=== PATIENT | female | born 1970 | race Caucasian/White ===

== ENCOUNTER → 2017-10-07 04:11 | Outpatient (CLI) | payer BC, SELFPAY ==
[2017-10-07 08:40] LABS: HCT 37.8 % (36.0-46.0); HGB 13.2 g/dL (12.0-15.5); Mean Corp. HGB Concentration 34.9 g/dL (32.0-36.0); Mean Corpuscular Hemoglobin 32.6 pg (27.0-33.0); Mean Corpuscular Volume 93.3 fL (80-95); Mean Platelet Volume 10.5 fL (8.0-11.0); Platelet Count 192 x1000/uL (130-400); RBC 4.05 m/cumm (4.00-5.20); RBC Distribution Width 11.5 % (11.7-14.6); White Blood Cell Count 3.81 k/cumm (4.4-10.8)
[2017-10-07 09:27] LABS: Iron 147 ug/dL (50-175); Total Iron Binding Capacity 245 ug/dL (250-450); Transferrin Sat 60 % (15-50)
[2017-10-07 09:46] LABS: ESR 10 MM/HR (0-20)
[2017-10-07 09:47] LABS: Vitamin D 25 Total 67.8 ng/ml (30-100)
[2017-10-07 09:56] LABS: ALT 31 U/L (12-78); AST 24 U/L (15-37); Albumin 3.8 g/dL (3.4-5.0); Alkaline Phosphatase 58 U/L (46-116); Anion Gap 8.2 mmol/L (3-11); BUN 12 mg/dL (7-18); Bilirubin, Total 0.7 mg/dL (0.2-1.0); CO2 26.8 mmol/L (21.0-32.0); CREATININE 0.81 mg/dL (0.55-1.02); Calcium 8.5 mg/dL (8.5-10.1); Chloride 104 mmol/L (98-107); Cholesterol 211 mg/dL (50-200); Ferritin 49 ng/mL (8-388); GGT 17 U/L (5-55); Glucose 84 mg/dL (70-100); HDL Cholesterol 81 mg/dL (40-60); LDL CHOLESTEROL 122 mg/dL (<100); Potassium 4.2 mmol/L (3.5-5.1); Sodium 139 mmol/L (136-145); TSH 0.28 uIU/mL (0.358-3.74); Total Protein 7.1 g/dL (6.4-8.2); Triglyceride 37 mg/dL (30-150); Vitamin B12 > 1000 pg/mL (193-986)
[2017-10-07 16:36] LABS: CRP, High Sensitivity 0.85 mg/L
[2017-10-07 16:51] LABS: T3,Free 3.3 pg/ml (2.8-5.3)
[2017-10-08 08:40] LABS: DHEA Sulfate 187 ug/dl (56-283)
[2017-10-08 10:00] LABS: Thyroglobulin Antibody 217 U/mL (<61); Thyroperoxidase Antibody 153 U/mL (<61)
[2017-10-08 10:48] LABS: Homocysteine 9.1 umol/L (4.5-12.4)
[2017-10-08 13:57] LABS: ANA Interpretation Positive (NEGAT); ANA Titer Pattern SEE COMMENTS
[2017-10-09 13:35] LABS: Mold Panel (MAYO) <0.35 kU/L
[2017-10-14 09:54] LABS: Insulin <3.0 uU/mL (<29)
== END ==
PROVIDERS: PCP Internal Medicine; Visit Provider Nurse Practitioner Family
DX: R53.83 Other fatigue (principal); E06.3 Autoimmune thyroiditis; E56.8 Deficiency of other vitamins; E55.9 Vitamin D deficiency, unspecified; E27.8 Other specified disorders of adrenal gland; E72.10 Disorders of sulfur-bearing amino-acid metabolism, unspecified; B37.82 Candidal enteritis; R76.9 Abnormal immunological finding in serum, unspecified; B89 Unspecified parasitic disease
CPT/HCPCS: 36415; 80053; 80061; 82306; 82627; 83090; 83721; 85027; 85652; 86141; 82607; 82728; 82977; 83525; 83540; 83550; 84439; 84443; 84481; 84999; 86003; 86038; 86376; 86628; 86800

== ENCOUNTER → 2017-10-25 15:14 | Outpatient (CLI) | payer BC, SELFPAY ==
[2017-10-26 10:00] LABS: Cyclic Citrullinated Peptide <2.5 U/mL (<5.0)
[2017-10-26 11:06] LABS: Rheumatoid Factor 25 IU/mL (<12.5)
[2017-10-26 13:38] LABS: dsDNA Ab, IgG <12.3 IU/mL (<30)
[2017-10-26 15:22] LABS: Sm (Smith) Ab, IgG 1.5 Units (<20)
[2017-10-27 12:54] LABS: RNP Ab, IgG 2.3 Units (<20)
== END ==
PROVIDERS: PCP Internal Medicine; Visit Provider Nurse Practitioner Family
DX: E03.9 Hypothyroidism, unspecified (principal); E06.3 Autoimmune thyroiditis
CPT/HCPCS: 36415; 86147; 86200; 86225; 86235; 86431

== ENCOUNTER 2017-11-02 11:13 | Outpatient (CLI) | payer BC, SELFPAY ==
[2017-11-02 13:06] LABS: FREE T4 0.73 ng/dL (0.76-1.46); TSH 0.17 uIU/mL (0.358-3.74)
[2017-11-03 09:48] LABS: Thyroglobulin Antibody 216 U/mL (<61); Thyroperoxidase Antibody 146 U/mL (<61)
[2017-11-06 14:59] LABS: T3 (Triiodothyronine) Reverse 13 ng/dL (10-24)
== END 2017-11-02 11:33 ==
PROVIDERS: PCP Internal Medicine; Visit Provider Nurse Practitioner Family
DX: E03.9 Hypothyroidism, unspecified (principal); E06.3 Autoimmune thyroiditis
CPT/HCPCS: 36415; 84439; 84443; 84481; 84482; 86376; 86800

== ENCOUNTER 2018-01-27 02:24 | Outpatient (CLI) | payer BC, SELFPAY ==
[2018-01-27 09:39] LABS: ALT 32 U/L (12-78); AST 21 U/L (15-37); Albumin 3.6 g/dL (3.4-5.0); Alkaline Phosphatase 55 U/L (46-116); Anion Gap 7.8 mmol/L (3-11); BUN 14 mg/dL (7-18); Bilirubin, Total 0.5 mg/dL (0.2-1.0); CO2 28.2 mmol/L (21.0-32.0); Calcium 8.6 mg/dL (8.5-10.1); Chloride 100 mmol/L (98-107); FREE T4 0.63 ng/dL (0.76-1.46); Glucose 83 mg/dL (70-100); Potassium 4.3 mmol/L (3.5-5.1); Sodium 136 mmol/L (136-145); Total Protein 7.1 g/dL (6.4-8.2)
[2018-01-27 10:19] LABS: Ferritin 51 ng/mL (8-388)
[2018-01-27 21:54] LABS: T3,Free 2.5 pg/ml (2.8-5.3)
[2018-01-28 09:18] LABS: Thyroglobulin Antibody 245 U/mL (<61)
[2018-01-28 09:19] LABS: Thyroperoxidase Antibody 188 U/mL (<61)
[2018-01-28 11:30] LABS: Homocysteine 7.3 umol/L (4.5-12.4)
[2018-01-28 12:03] LABS: Rheumatoid Factor 23 IU/mL (<12.5)
[2018-01-28 13:54] LABS: ANA Interpretation Positive (NEGAT); ANA Titer Pattern SEE COMMENTS
[2018-02-01 12:57] LABS: T3 (Triiodothyronine) Reverse 8.1 ng/dL (10-24)
== END 2018-01-27 02:44 ==
PROVIDERS: PCP Internal Medicine; Visit Provider Nurse Practitioner Family
DX: R53.83 Other fatigue (principal); E06.3 Autoimmune thyroiditis; E56.8 Deficiency of other vitamins; E55.9 Vitamin D deficiency, unspecified; E27.8 Other specified disorders of adrenal gland; E72.10 Disorders of sulfur-bearing amino-acid metabolism, unspecified; B37.82 Candidal enteritis; R76.9 Abnormal immunological finding in serum, unspecified; B89 Unspecified parasitic disease; M25.50 Pain in unspecified joint
CPT/HCPCS: 36415; 80053; 83090; 82728; 83525; 84439; 84443; 84481; 84482; 86038; 86376; 86431; 86800

== ENCOUNTER 2018-03-04 07:51 | Outpatient (CLI) | payer BC, SELFPAY ==
[2018-03-04 09:03] LABS: Iron 87 ug/dL (50-175); Total Iron Binding Capacity 226 ug/dL (250-450); Transferrin Sat 38 % (15-50)
[2018-03-04 09:17] LABS: Ferritin 41 ng/mL (8-388); TSH 0.11 uIU/mL (0.358-3.74)
[2018-03-04 09:45] LABS: FREE T4 0.88 ng/dL (0.76-1.46)
[2018-03-04 21:55] LABS: T3,Free 3.8 pg/ml (2.8-5.3)
[2018-03-07 11:09] LABS: Transferrin 170 mg/dL (201-352)
== END 2018-03-04 08:11 ==
PROVIDERS: PCP Internal Medicine; Visit Provider Nurse Practitioner Family
DX: E03.9 Hypothyroidism, unspecified (principal); E61.1 Iron deficiency
CPT/HCPCS: 36415; 82728; 83540; 83550; 84439; 84443; 84466; 84481

== ENCOUNTER 2018-04-01 00:07 | Outpatient (CLI) | payer BC, SELFPAY ==
--- NOTE | 2018-04-01 14:29 | DI.MRI_ITS ---
SYMPTOMS/DIAGNOSIS: EVALUATE FOR ROTATOR CUFF TEAR, ACUTE PAIN, M25.512 LEFT SHOULDER MRI: MRI examination of the shoulder was performed according to the usual protocol. No significant bony signal abnormality is seen. Mild hypertrophic degenerative changes noted at the AC joint with mild superior impingement on supraspinatus tendon/myotendinous junction. Narrowing of the acromial outlet is also noted. Minimal signal increase in supraspinatus tendon noted consistent with a mild tendinosis. No evidence of tear. There is mild irregularity of the superior surface of the subscapularis which may represent a minimal partial thickness tear. No full thickness tear or retraction seen. The biceps anchor and tendon appear normal. The glenoid labrum grossly unremarkable by noncontrast criteria. CONCLUSION: Findings consistent with mild supraspinatus tendinosis and mild superior margin subscapularis tendinosis or partial tear. Findings of AC joint associated supraspinatus impingement and narrowing of the acromial outlet due to decreased acromiohumeral distance also noted.
== END 2018-04-01 00:27 ==
PROVIDERS: PCP Internal Medicine; Visit Provider Orthopaedic Surgery
DX: M25.512 Pain in left shoulder (principal); M75.82 Other shoulder lesions, left shoulder; M75.42 Impingement syndrome of left shoulder
CPT/HCPCS: 73221

== ENCOUNTER 2018-09-16 02:45 | Outpatient (CLI) | payer BC, SELFPAY ==
[2018-09-16 13:27] LABS: ALT 33 U/L (12-78); AST 20 U/L (15-37); Albumin 2.5 g/dL (3.4-5.0); Alkaline Phosphatase 52 U/L (46-116); Anion Gap 6.2 mmol/L (3-11); BUN 14 mg/dL (7-18); Bilirubin, Total 0.6 mg/dL (0.2-1.0); CO2 28.8 mmol/L (21.0-32.0); CREATININE 0.69 mg/dL (0.55-1.02); Calcium 9.1 mg/dL (8.5-10.1); Chloride 101 mmol/L (98-107); FREE T4 0.62 ng/dL (0.76-1.46); Glucose 106 mg/dL (70-100); Potassium 4.5 mmol/L (3.5-5.1); Sodium 136 mmol/L (136-145); TSH 37.35 uIU/mL (0.358-3.74); Total Protein 7.5 g/dL (6.4-8.2)
[2018-09-16 22:12] LABS: T3,Free 3.4 pg/ml (2.8-5.3)
[2018-09-20 12:02] LABS: T3 (Triiodothyronine) Reverse 10 ng/dL (10-24)
== END 2018-09-16 03:05 ==
PROVIDERS: PCP Internal Medicine; Visit Provider Nurse Practitioner Family
DX: E03.9 Hypothyroidism, unspecified (principal)
CPT/HCPCS: 36415; 80053; 84439; 84443; 84481; 84482

== ENCOUNTER 2018-10-26 07:00 | Outpatient (CLI) | payer BC, SELFPAY ==
[2018-10-27 17:02] LABS: Estradiol 269 pg/ml; Progesterone 13.4 ng/ml
[2018-10-28 10:48] LABS: FSH 11.9 mIU/ml
[2018-10-30 09:50] LABS: Testosterone, Free 0.27 ng/dL (0.06-0.95); Testosterone, Total 17 ng/dL (8-60)
[2018-11-01 10:11] LABS: Estrone 141 pg/mL
== END 2018-10-26 07:20 ==
PROVIDERS: PCP Internal Medicine; Visit Provider Nurse Practitioner Family
DX: N95.1 Menopausal and female climacteric states (principal); R53.83 Other fatigue; E06.3 Autoimmune thyroiditis; E56.8 Deficiency of other vitamins; E55.9 Vitamin D deficiency, unspecified; E27.8 Other specified disorders of adrenal gland; E72.10 Disorders of sulfur-bearing amino-acid metabolism, unspecified; B37.82 Candidal enteritis; R76.9 Abnormal immunological finding in serum, unspecified; B89 Unspecified parasitic disease
CPT/HCPCS: 36415; 84402; 84403; 82670; 82679; 83001; 84144

== ENCOUNTER 2018-11-11 01:45 | Outpatient (CLI) | payer BC, SELFPAY ==
[2018-11-11 08:36] LABS: ALT 34 U/L (14-59); AST 21 U/L (15-37); Albumin 3.9 g/dL (3.4-5.0); Alkaline Phosphatase 68 U/L (46-116); Anion Gap 8.6 mmol/L (3-11); BUN 13 mg/dL (7-18); Bilirubin, Total 0.4 mg/dL (0.2-1.0); CO2 29.4 mmol/L (21.0-32.0); CREATININE 0.77 mg/dL (0.55-1.02); Calcium 8.6 mg/dL (8.5-10.1); Chloride 104 mmol/L (98-107); Ferritin 83 ng/mL (8-388); Glucose 65 mg/dL (70-100); Sodium 142 mmol/L (136-145); TSH 1.06 uIU/mL (0.36-3.74); Total Protein 7.4 g/dL (6.4-8.2)
[2018-11-11 08:58] LABS: FREE T4 1.11 ng/dL (0.76-1.46)
[2018-11-11 09:08] LABS: Iron 72 ug/dL (50-175); Total Iron Binding Capacity 227 ug/dL (250-450); Transferrin Sat 32 % (15-50)
[2018-11-11 16:47] LABS: T3,Free 3.4 pg/ml (2.8-5.3)
[2018-11-15 09:59] LABS: T3 (Triiodothyronine) Reverse 17 ng/dL (10-24)
== END 2018-11-11 02:05 ==
PROVIDERS: PCP Internal Medicine; Visit Provider Nurse Practitioner Family
DX: E03.9 Hypothyroidism, unspecified (principal); E61.1 Iron deficiency
CPT/HCPCS: 36415; 80053; 82728; 83540; 83550; 84439; 84443; 84481; 84482

== ENCOUNTER 2019-05-12 09:26 | Outpatient (CLI) | payer BC, SELFPAY ==
[2019-05-12 11:56] LABS: HCT 38.6 % (36.0-46.0); HGB 13.2 g/dL (12.0-15.5); Mean Corp. HGB Concentration 34.2 g/dL (32.0-36.0); Mean Corpuscular Hemoglobin 32.3 pg (27.0-33.0); Mean Corpuscular Volume 94.4 fL (80-95); Mean Platelet Volume 9.7 fL (8.0-11.0); Platelet Count 218 x1000/uL (130-400); RBC 4.09 m/cumm (4.00-5.20); RBC Distribution Width 12.2 % (11.7-14.6); White Blood Cell Count 5.14 k/cumm (4.4-10.8)
[2019-05-12 13:17] LABS: ALT 28 U/L (14-59); AST 21 U/L (15-37); Albumin 3.9 g/dL (3.4-5.0); Alkaline Phosphatase 63 U/L (46-116); Anion Gap 5.9 mmol/L (3-11); BUN 12 mg/dL (7-18); Bilirubin, Total 0.4 mg/dL (0.2-1.0); CO2 31.1 mmol/L (21.0-32.0); CREATININE 0.78 mg/dL (0.55-1.02); Calcium 8.4 mg/dL (8.5-10.1); Chloride 103 mmol/L (98-107); Ferritin 97 ng/mL (8-252); Glucose 141 mg/dL (74-106); Potassium 3.9 mmol/L (3.5-5.1); Sodium 140 mmol/L (136-145); TSH 0.56 uIU/mL (0.36-3.74); Total Protein 7.4 g/dL (6.4-8.2)
[2019-05-12 13:34] LABS: FREE T4 1.25 ng/dL (0.76-1.46)
[2019-05-12 21:36] LABS: T3,Free 3.5 pg/mL (2.8-5.3)
[2019-05-15 07:16] LABS: Vitamin D 25 Total 72.6 ng/ml (30-100)
[2019-05-16 13:24] LABS: T3 (Triiodothyronine) Reverse 22 ng/dL (10-24)
== END 2019-05-12 09:46 ==
PROVIDERS: PCP Internal Medicine; Visit Provider Nurse Practitioner Family
DX: R53.83 Other fatigue (principal); E06.3 Autoimmune thyroiditis; E56.8 Deficiency of other vitamins; E55.9 Vitamin D deficiency, unspecified; E27.8 Other specified disorders of adrenal gland; E72.10 Disorders of sulfur-bearing amino-acid metabolism, unspecified; B37.82 Candidal enteritis; R76.9 Abnormal immunological finding in serum, unspecified; B89 Unspecified parasitic disease
CPT/HCPCS: 36415; 80053; 82306; 85027; 82728; 84439; 84443; 84481; 84482

== ENCOUNTER 2019-09-01 01:09 | Outpatient (CLI) | payer BC, SELFPAY ==
[2019-09-01 12:51] LABS: HCT 37.3 % (36.0-46.0); HGB 13.1 g/dL (12.0-15.5); Mean Corp. HGB Concentration 35.1 g/dL (32.0-36.0); Mean Platelet Volume 9.7 fL (8.0-11.0); Platelet Count 231 x1000/uL (130-400); RBC 3.97 m/cumm (4.00-5.20); White Blood Cell Count 5.83 k/cumm (4.4-10.8)
[2019-09-01 13:00] LABS: Hemoglobin A1C 4.8 % (3.8-5.6)
[2019-09-01 13:52] LABS: ALT 23 U/L (14-59); AST 19 U/L (15-37); Albumin 3.9 g/dL (3.4-5.0); Alkaline Phosphatase 60 U/L (46-116); Anion Gap 6.8 mmol/L (3-11); BUN 14 mg/dL (7-18); Bilirubin, Total 0.4 mg/dL (0.2-1.0); CO2 29.2 mmol/L (21.0-32.0); Calcium 8.8 mg/dL (8.5-10.1); Chloride 101 mmol/L (98-107); Estimated GFR 52.79 (mL/min/1.73m2); FREE T4 0.83 ng/dL (0.76-1.46); Glucose 92 mg/dL (74-106); Potassium 4.1 mmol/L (3.5-5.1); Sodium 137 mmol/L (136-145); TSH 14.28 uIU/mL (0.36-3.74); Total Protein 7.3 g/dL (6.4-8.2)
[2019-09-01 20:42] LABS: T3,Free 3.5 pg/mL (2.8-5.3)
[2019-09-01 20:59] LABS: Estradiol 32 pg/mL (See Note); Progesterone 12.3 ng/mL (See Table)
[2019-09-04 05:55] LABS: Vitamin D 25 Total 77.3 ng/ml (30-100)
[2019-09-04 13:33] LABS: FSH 64.5 mIU/mL (See Note)
== END 2019-09-01 01:29 ==
PROVIDERS: PCP Internal Medicine; Visit Provider Nurse Practitioner Family
DX: R53.83 Other fatigue (principal); E06.3 Autoimmune thyroiditis; E56.8 Deficiency of other vitamins; E55.9 Vitamin D deficiency, unspecified; E27.8 Other specified disorders of adrenal gland; E72.10 Disorders of sulfur-bearing amino-acid metabolism, unspecified; B37.82 Candidal enteritis; R76.9 Abnormal immunological finding in serum, unspecified; B89 Unspecified parasitic disease
CPT/HCPCS: 36415; 80053; 82306; 85027; 82670; 83001; 83036; 84144; 84439; 84443; 84481

== ENCOUNTER 2019-09-14 02:46 | Outpatient (CLI) | payer BC, SELFPAY ==
[2019-09-14 14:19] LABS: ALT 23 U/L (14-59); AST 21 U/L (15-37); Albumin 3.9 g/dL (3.4-5.0); Alkaline Phosphatase 60 U/L (46-116); Anion Gap 7.3 mmol/L (3-11); BUN 13 mg/dL (7-18); Bilirubin, Total 0.3 mg/dL (0.2-1.0); CO2 28.7 mmol/L (21.0-32.0); CREATININE 0.99 mg/dL (0.55-1.02); Chloride 102 mmol/L (98-107); Estimated GFR 59.62 (mL/min/1.73m2); Glucose 104 mg/dL (74-106); Potassium 4.6 mmol/L (3.5-5.1); Sodium 138 mmol/L (136-145); T4 5.4 ug/mL (4.7-13.3); TSH 13.33 uIU/mL (0.36-3.74); Total Protein 7.1 g/dL (6.4-8.2)
[2019-09-14 14:36] LABS: FREE T4 0.89 ng/dL (0.76-1.46)
[2019-09-14 21:38] LABS: T3,Free 3.1 pg/mL (2.8-5.3)
[2019-09-14 21:53] LABS: T3, Total 169 ng/dL (97-169)
== END 2019-09-14 03:06 ==
PROVIDERS: PCP Internal Medicine; Visit Provider Nurse Practitioner Family
DX: E03.9 Hypothyroidism, unspecified (principal)
CPT/HCPCS: 36415; 80053; 84436; 84439; 84443; 84480; 84481

== ENCOUNTER 2019-12-08 02:57 | Outpatient (CLI) | payer BC, SELFPAY ==
[2019-12-08 12:20] LABS: HCT 38.7 % (36.0-46.0); HGB 13.4 g/dL (11.2-15.7); MCH 33.1 pg (27.0-33.0); MCHC 34.6 % (32.0-36.0); MCV 95.6 fL (80-95); MPV 10.1 fL (8.0-11.0); Platelet Count 226 10^3/uL (130-400); RBC 4.05 10^6/uL (3.93-5.22); RDW 11.2 % (11.7-14.6); RDW-SD 39.4 fL; WBC 4.68 10^3/uL (4.4-10.8)
[2019-12-08 13:37] LABS: ALT 25 U/L (14-59); AST 18 U/L (15-37); Albumin 3.8 g/dL (3.4-5.0); Alkaline Phosphatase 58 U/L (46-116); Anion Gap 8.3 mmol/L (3-11); BUN 12 mg/dL (7-18); Bilirubin, Total 0.4 mg/dL (0.2-1.0); CO2 28.7 mmol/L (21.0-32.0); CREATININE 0.83 mg/dL (0.55-1.02); Calcium 8.6 mg/dL (8.5-10.1); Chloride 103 mmol/L (98-107); Ferritin 80 ng/mL (8-252); Glucose 96 mg/dL (74-106); Potassium 4.2 mmol/L (3.5-5.1); Sodium 140 mmol/L (136-145); TSH 2.09 uIU/mL (0.36-3.74); Total Protein 7.1 g/dL (6.4-8.2)
[2019-12-08 14:38] LABS: FREE T4 1.08 ng/dL (0.76-1.46)
[2019-12-08 17:53] LABS: T3,Free 3.6 pg/mL (2.8-5.3)
== END 2019-12-08 03:17 ==
PROVIDERS: PCP Internal Medicine; Visit Provider Nurse Practitioner Family
DX: R53.83 Other fatigue (principal); E06.3 Autoimmune thyroiditis; E56.8 Deficiency of other vitamins; E55.9 Vitamin D deficiency, unspecified; E27.8 Other specified disorders of adrenal gland; E72.10 Disorders of sulfur-bearing amino-acid metabolism, unspecified; B37.82 Candidal enteritis; R76.9 Abnormal immunological finding in serum, unspecified; B89 Unspecified parasitic disease
CPT/HCPCS: 36415; 80053; 85027; 82728; 84439; 84443; 84481

== ENCOUNTER 2020-02-05 12:06 | Outpatient (CLI) | payer BC, SELFPAY ==
[2020-02-07 09:41] LABS: COVID-19 RT-PCR Result NEGATIVE (Negative)
== END 2020-02-05 12:26 ==
PROVIDERS: PCP Internal Medicine; Visit Provider Internal Medicine
DX: Z20.828 Contact with and (suspected) exposure to other viral communicable diseases (principal)
CPT/HCPCS: U0003

== ENCOUNTER 2020-05-03 02:37 | Outpatient (CLI) | payer BC, SELFPAY ==
[2020-05-03 11:17] LABS: HCT 38.8 % (36.0-46.0); HGB 13.3 g/dL (11.2-15.7); MCH 32.3 pg (27.0-33.0); MCHC 34.3 % (32.0-36.0); MCV 94.2 fL (80-95); MPV 10.2 fL (8.0-11.0); Platelet Count 224 10^3/uL (130-400); RBC 4.12 10^6/uL (3.93-5.22); RDW 11.7 % (11.7-14.6); RDW-SD 40.2 fL; WBC 6.58 10^3/uL (4.4-10.8)
[2020-05-03 12:37] LABS: ALT 28 U/L (14-59); AST 16 U/L (15-37); Albumin 4.1 g/dL (3.4-5.0); Alkaline Phosphatase 61 U/L (46-116); Anion Gap 7.3 mmol/L (3-11); BUN 14 mg/dL (7-18); Bilirubin, Total 0.4 mg/dL (0.2-1.0); CO2 28.7 mmol/L (21.0-32.0); CREATININE 0.8 mg/dL (0.55-1.02); Calcium 8.9 mg/dL (8.5-10.1); Chloride 103 mmol/L (98-107); FREE T4 1.11 ng/dL (0.76-1.46); Glucose 91 mg/dL (74-106); Potassium 4.1 mmol/L (3.5-5.1); Sodium 139 mmol/L (136-145); TSH 3.51 uIU/mL (0.36-3.74); Total Protein 7.6 g/dL (6.4-8.2)
[2020-05-03 22:08] LABS: T3,Free 3.3 pg/mL (2.8-5.3)
[2020-05-03 22:19] LABS: Estradiol <12 pg/mL (See Note)
[2020-05-03 22:21] LABS: Progesterone 1.1 ng/mL (See Table)
[2020-05-03 22:33] LABS: FSH 83.4 mIU/mL (See Note)
[2020-05-06 05:59] LABS: Vitamin D 25 Total 82.7 ng/ml (30-100)
== END 2020-05-03 02:38 | disposition home or self-care (01) ==
LOC: LBO 02:37
PROVIDERS: PCP Internal Medicine; Visit Provider Nurse Practitioner Family
DX: E03.9 Hypothyroidism, unspecified (principal)
CPT/HCPCS: 36415; 80053; 82306; 85027; 82670; 83001; 84144; 84439; 84443; 84481

== ENCOUNTER 2020-07-10 03:06 | Outpatient (CLI) | payer BC, SELFPAY ==
[2020-07-10 13:16] LABS: ALT 33 U/L (14-59); AST 23 U/L (15-37); Albumin 3.9 g/dL (3.4-5.0); Alkaline Phosphatase 60 U/L (46-116); Anion Gap 7.9 mmol/L (3-11); BUN 10 mg/dL (7-18); Bilirubin, Total 0.4 mg/dL (0.2-1.0); CO2 28.1 mmol/L (21.0-32.0); CREATININE 0.8 mg/dL (0.55-1.02); Calcium 8.7 mg/dL (8.5-10.1); Chloride 102 mmol/L (98-107); FREE T4 1.23 ng/dL (0.76-1.46); Glucose 86 mg/dL (74-106); Potassium 4.1 mmol/L (3.5-5.1); Sodium 138 mmol/L (136-145); TSH 0.48 uIU/mL (0.36-3.74); Total Protein 7.3 g/dL (6.4-8.2)
[2020-07-10 16:32] LABS: T3,Free 3.6 pg/mL (2.8-5.3)
[2020-07-10 17:27] LABS: Estradiol 196 pg/mL (See Note)
[2020-07-10 17:33] LABS: FSH 29.1 mIU/mL (See Note); Progesterone 8.9 ng/mL (See Table)
[2020-07-12 09:55] LABS: DHEA Sulfate 106 ug/dL (56-283)
[2020-07-13 13:48] LABS: Testosterone, Free 0.22 ng/dL (0.06-0.92); Testosterone, Total 16 ng/dL (8-60)
[2020-07-13 14:21] LABS: Estrone 61 pg/mL
== END 2020-07-10 03:07 | disposition home or self-care (01) ==
LOC: LBO 03:07
PROVIDERS: PCP Internal Medicine; Visit Provider Nurse Practitioner Family
DX: R53.83 Other fatigue (principal); E06.3 Autoimmune thyroiditis; E56.8 Deficiency of other vitamins; E55.9 Vitamin D deficiency, unspecified; E27.8 Other specified disorders of adrenal gland; E72.10 Disorders of sulfur-bearing amino-acid metabolism, unspecified; B37.82 Candidal enteritis; R76.9 Abnormal immunological finding in serum, unspecified; B89 Unspecified parasitic disease
CPT/HCPCS: 36415; 80053; 82627; 84402; 84403; 82670; 82679; 83001; 84144; 84439; 84443; 84481

== ENCOUNTER 2020-10-15 03:49 | Outpatient (CLI) | payer BC, SELFPAY ==
[2020-10-15 15:02] LABS: ESR 1 mm/hr (0-20); HCT 37.2 % (36.0-46.0); HGB 12.4 g/dL (11.2-15.7); MCH 31.9 pg (27.0-33.0); MCHC 33.3 % (32.0-36.0); MCV 95.6 fL (80-95); MPV 9.9 fL (8.0-11.0); Platelet Count 201 10^3/uL (130-400); RBC 3.89 10^6/uL (3.93-5.22); RDW 11.7 % (11.7-14.6); RDW-SD 41.1 fL; WBC 5.21 10^3/uL (4.4-10.8)
[2020-10-15 16:37] LABS: ALT 25 U/L (14-59); AST 16 U/L (15-37); Albumin 3.7 g/dL (3.4-5.0); Alkaline Phosphatase 57 U/L (46-116); Anion Gap 6.3 mmol/L (3-11); BUN 16 mg/dL (7-18); Bilirubin, Total 0.2 mg/dL (0.2-1.0); CO2 28.7 mmol/L (21.0-32.0); CREATININE 0.8 mg/dL (0.55-1.02); Calcium 8.3 mg/dL (8.5-10.1); Chloride 104 mmol/L (98-107); Glucose 96 mg/dL (74-106); Potassium 4.5 mmol/L (3.5-5.1); Sodium 139 mmol/L (136-145); Total Protein 6.8 g/dL (6.4-8.2)
[2020-10-15 21:52] LABS: Rheumatoid Factor 15.4 IU/mL (<12.0)
[2020-10-16 08:52] LABS: Cyclic Citrullinated Peptide <2.5 U/mL (<5.0)
[2020-10-16 15:09] LABS: ANA Interpretation Positive (Negative); ANA Titer Pattern 1:320 Homogeneous
[2020-10-17 01:26] LABS: IgG Immunoblot Negative (Negative); IgM Immunoblot Negative (Negative)
== END 2020-10-15 03:50 | disposition home or self-care (01) ==
LOC: LBO 03:49
PROVIDERS: PCP Internal Medicine; Visit Provider Nurse Practitioner Family
DX: M25.50 Pain in unspecified joint (principal)
CPT/HCPCS: 36415; 80053; 85027; 85652; 86200; 86038; 86431

== ENCOUNTER 2020-11-08 04:19 | Outpatient (CLI) | payer BC, SELFPAY ==
--- NOTE | 2020-11-08 | DI.DEXA_ITS ---
Exam(s) XR DEXA BONE DENSITY W/WO DAPHNE EXAM: XR DEXA BONE DENSITY W/WO DAPHNE CLINICAL HISTORY: MENOPAUSAL FEMALE, N95.1, HYPOTHYROIDISM, E03.9, VIT D DEF, E55.9 TECHNIQUE: COMPARISON: No exams were available for comparison FINDINGS: Lateral Spine Image: Unremarkable. No compression deformities identified. Left/Right Hip: Total T-Score: -1.0 Total Z-Score: -0.6 T- and Z-scores: Within normal limits. Lumbar Spine: Total T-Score: -1.3 Total Z-Score: -0.5 T- and Z-scores: Findings consistent with osteopenia. IMPRESSION: Osteopenia in the lumbar spine. No evidence of osteoporosis.
== END 2020-11-08 04:39 ==
PROVIDERS: PCP Internal Medicine; Visit Provider Nurse Practitioner Family
DX: E03.9 Hypothyroidism, unspecified (principal); E55.9 Vitamin D deficiency, unspecified; R53.83 Other fatigue; E06.3 Autoimmune thyroiditis; E56.8 Deficiency of other vitamins; E27.8 Other specified disorders of adrenal gland; E72.10 Disorders of sulfur-bearing amino-acid metabolism, unspecified; B37.82 Candidal enteritis; R76.9 Abnormal immunological finding in serum, unspecified; B89 Unspecified parasitic disease; M85.89 Other specified disorders of bone density and structure, multiple sites
CPT/HCPCS: 77080

== ENCOUNTER 2021-01-08 02:53 | Outpatient (CLI) | payer BC, SELFPAY ==
[2021-01-08 12:34] LABS: HCT 35.5 % (36.0-46.0); HGB 12.2 g/dL (11.2-15.7); MCH 32.8 pg (27.0-33.0); MCHC 34.4 % (32.0-36.0); MCV 95.4 fL (80-95); MPV 9.6 fL (8.0-11.0); Platelet Count 193 10^3/uL (130-400); RBC 3.72 10^6/uL (3.93-5.22); RDW 11.6 % (11.7-14.6); RDW-SD 40.5 fL; WBC 5.05 10^3/uL (4.4-10.8)
[2021-01-08 16:17] LABS: Albumin 3.6 g/dL (3.4-5.0); Alkaline Phosphatase 60 U/L (46-116); BUN 10 mg/dL (7-18); Bilirubin, Total 0.2 mg/dL (0.2-1.0); CREATININE 0.8 mg/dL (0.55-1.02); Calcium 8.3 mg/dL (8.5-10.1); Glucose 139 mg/dL (74-106); Sodium 141 mmol/L (136-145); Total Protein 6.7 g/dL (6.4-8.2)
[2021-01-08 16:18] LABS: ALT 31 U/L (14-59); AST 22 U/L (15-37); Chloride 105 mmol/L (98-107); Potassium 4.3 mmol/L (3.5-5.1); TSH 0.14 uIU/mL (0.36-3.74)
[2021-01-08 16:19] LABS: FREE T4 1.23 ng/dL (0.76-1.46)
[2021-01-08 22:24] LABS: T3,Free 3.3 pg/mL (2.8-5.3)
[2021-01-08 23:01] LABS: Estradiol 46 pg/mL (See Note); Progesterone 8.9 ng/mL (See Table)
[2021-01-08 23:08] LABS: Thyroglobulin Antibody 180 U/mL (<=60); Thyroperoxidase Antibody 161 U/mL (<=60)
[2021-01-10 16:45] LABS: Estrone 37 pg/mL
[2021-01-11 16:53] LABS: Testosterone, Total 14 ng/dL (8-60)
[2021-01-13 15:52] LABS: T3 (Triiodothyronine) Reverse 20 ng/dL (10-24)
== END 2021-01-08 02:54 | disposition home or self-care (01) ==
LOC: LBO 02:53
PROVIDERS: PCP Internal Medicine; Visit Provider Nurse Practitioner Family
DX: R53.83 Other fatigue (principal); E06.3 Autoimmune thyroiditis; E56.8 Deficiency of other vitamins; E55.9 Vitamin D deficiency, unspecified; E27.8 Other specified disorders of adrenal gland; E72.10 Disorders of sulfur-bearing amino-acid metabolism, unspecified; B37.82 Candidal enteritis; R76.9 Abnormal immunological finding in serum, unspecified; B89 Unspecified parasitic disease
CPT/HCPCS: 36415; 80053; 84403; 85027; 86376; 82670; 82679; 84144; 84439; 84443; 84481; 84482

== ENCOUNTER 2021-03-13 04:19 | Outpatient (CLI) | payer BC, SELFPAY ==
[2021-03-13 12:24] LABS: FREE T4 1.14 ng/dL (0.76-1.46); TSH 0.48 uIU/mL (0.36-3.74)
[2021-03-13 18:04] LABS: T3,Free 3.6 pg/mL (2.8-5.3)
[2021-03-18 14:21] LABS: T3 (Triiodothyronine) Reverse 18 ng/dL (10-24)
== END 2021-03-13 04:20 | disposition home or self-care (01) ==
LOC: LBO 04:24
PROVIDERS: PCP Internal Medicine; Visit Provider Nurse Practitioner Family
DX: R53.83 Other fatigue (principal); E06.3 Autoimmune thyroiditis; E56.8 Deficiency of other vitamins; E55.9 Vitamin D deficiency, unspecified; E27.8 Other specified disorders of adrenal gland; E72.10 Disorders of sulfur-bearing amino-acid metabolism, unspecified; B37.82 Candidal enteritis; R76.9 Abnormal immunological finding in serum, unspecified; B89 Unspecified parasitic disease
CPT/HCPCS: 36415; 84439; 84443; 84481; 84482

== ENCOUNTER 2021-06-12 02:32 | Outpatient (CLI) | payer BC, SELFPAY | END 2021-06-12 02:33 | disposition home or self-care (01) | LOC: LBO 02:32 | PROVIDERS: PCP Internal Medicine; Visit Provider Nurse Practitioner Family ==

== ENCOUNTER 2021-06-17 01:52 | Outpatient (CLI) | payer BC, SELFPAY | END 2021-06-17 01:53 | disposition home or self-care (01) | LOC: LBO 01:52 | PROVIDERS: PCP Internal Medicine; Visit Provider Nurse Practitioner Family ==

== ENCOUNTER 2021-07-08 01:52 | Outpatient (CLI) | payer BC, SELFPAY ==
[2021-07-08 07:59] LABS: HCT 39.8 % (36.0-46.0); HGB 13.4 g/dL (11.2-15.7); MCH 32.3 pg (27.0-33.0); MCHC 33.7 % (32.0-36.0); MCV 96 fL (80-95); MPV 10.7 fL (8.0-11.0); Platelet Count 187 10^3/uL (130-400); RBC 4.15 10^6/uL (3.93-5.22); RDW 11.5 % (11.7-14.6); RDW-SD 40.7 fL; WBC 3.95 10^3/uL (4.4-10.8)
[2021-07-08 09:11] LABS: ALT 27 U/L (14-59); AST 20 U/L (15-37); Alkaline Phosphatase 61 U/L (46-116); Anion Gap 7.6 mmol/L (3-11); BUN 9 mg/dL (7-18); Bilirubin, Total 0.6 mg/dL (0.2-1.0); CO2 28.4 mmol/L (21.0-32.0); CREATININE 0.9 mg/dL (0.55-1.02); Calcium 8.7 mg/dL (8.5-10.1); Chloride 102 mmol/L (98-107); FREE T4 1.06 ng/dL (0.76-1.46); Glucose 85 mg/dL (74-106); Potassium 3.9 mmol/L (3.5-5.1); Sodium 138 mmol/L (136-145); TSH 0.41 uIU/mL (0.36-3.74); Total Protein 7.4 g/dL (6.4-8.2)
[2021-07-08 18:50] LABS: T3,Free 3.5 pg/mL (2.8-5.3)
[2021-07-08 19:29] LABS: Estradiol 53 pg/mL (See Note); Progesterone 14.8 ng/mL (See Table)
[2021-07-08 20:21] LABS: Thyroglobulin Antibody 129 U/mL (<=60)
[2021-07-08 20:24] LABS: Thyroperoxidase Antibody 139 U/mL (<=60)
[2021-07-11 14:51] LABS: T3 (Triiodothyronine) Reverse 17 ng/dL (10-24)
[2021-07-11 16:38] LABS: Estrone 35 pg/mL
[2021-07-12 00:08] LABS: Testosterone, Total 17 ng/dL (8-60)
== END 2021-07-08 01:53 | disposition home or self-care (01) ==
LOC: LBO 01:53
PROVIDERS: PCP Internal Medicine; Visit Provider Nurse Practitioner Family
DX: E06.3 Autoimmune thyroiditis (principal); E56.8 Deficiency of other vitamins; E55.9 Vitamin D deficiency, unspecified; E27.8 Other specified disorders of adrenal gland; E72.10 Disorders of sulfur-bearing amino-acid metabolism, unspecified; B37.82 Candidal enteritis; R76.9 Abnormal immunological finding in serum, unspecified; M85.80 Other specified disorders of bone density and structure, unspecified site; R53.83 Other fatigue
CPT/HCPCS: 36415; 80053; 84403; 85027; 82670; 82679; 84144; 84439; 84443; 84481; 84482; 86376; 86800

== ENCOUNTER 2021-11-12 15:17 | Outpatient (CLI) | payer BC, SELFPAY ==
--- NOTE | 2021-11-12 14:00 | DI.RAD_ITS ---
Exam(s) XR SHOULDER RT COMPLETE 2+V EXAM: XR SHOULDER RT COMPLETE 2+V CLINICAL HISTORY: right shoulder pain. TECHNIQUE: 2D digital imaging was performed. COMPARISON: No exams were available for comparison FINDINGS: Two views- No evidence of fracture or dislocation. No degenerative changes. No subacromial space height loss n or soft tissue calcifications in this region. Bone density normal. No osseous lesions. IMPRESSION: DATA REPOSITORY: RADIATION DOSE DELIVERED:
== END 2021-11-12 15:18 | disposition home or self-care (01) ==
LOC: DIORS 15:17
PROVIDERS: PCP Internal Medicine; Referring Provider Internal Medicine; Visit Provider Student in an Organized Health Care Education/Training Program
DX: M25.511 Pain in right shoulder (principal)
CPT/HCPCS: 73030

== ENCOUNTER 2021-11-26 03:22 | Outpatient (CLI) | payer BC, SELFPAY ==
[2021-11-26 08:57] LABS: HCT 39.9 % (36.0-46.0); HGB 13.8 g/dL (11.2-15.7); MCH 32.9 pg (27.0-33.0); MCHC 34.6 % (32.0-36.0); MCV 95 fL (80-95); MPV 10.1 fL (8.0-11.0); Platelet Count 213 10^3/uL (130-400); RDW 11.6 % (11.7-14.6); RDW-SD 40.5 fL; WBC 5.28 10^3/uL (4.4-10.8)
[2021-11-26 09:36] LABS: ALT 27 U/L (14-59); AST 15 U/L (15-37); Albumin 4.2 g/dL (3.4-5.0); Alkaline Phosphatase 52 U/L (46-116); Anion Gap 5.2 mmol/L (3-11); BUN 14 mg/dL (7-18); Bilirubin, Total 0.4 mg/dL (0.2-1.0); CO2 30.8 mmol/L (21.0-32.0); Chloride 101 mmol/L (98-107); Estimated GFR 68.21 (mL/min/1.73m2); Glucose 92 mg/dL (74-106); Potassium 4.3 mmol/L (3.5-5.1); Sodium 137 mmol/L (136-145); Total Protein 7.9 g/dL (6.4-8.2)
[2021-11-26 09:48] LABS: T4 8.8 ug/mL (4.7-13.3)
[2021-11-26 17:33] LABS: T3,Free 3.1 pg/mL (2.8-5.3)
[2021-11-26 17:48] LABS: T3, Total 142 ng/dL (97-169)
[2021-11-26 18:21] LABS: Estradiol 29 pg/mL (See Note)
[2021-11-29 10:43] LABS: Testosterone, Total 25 ng/dL (8-60)
[2021-11-30 13:54] LABS: Estrone 30 pg/mL
[2021-12-01 14:03] LABS: T3 (Triiodothyronine) Reverse 20 ng/dL (10-24)
== END 2021-11-26 03:23 | disposition home or self-care (01) ==
LOC: LBO 03:22
PROVIDERS: PCP Internal Medicine; Visit Provider Nurse Practitioner Family
DX: R53.83 Other fatigue (principal); E06.3 Autoimmune thyroiditis; E56.8 Deficiency of other vitamins; E55.9 Vitamin D deficiency, unspecified; E27.8 Other specified disorders of adrenal gland; E72.10 Disorders of sulfur-bearing amino-acid metabolism, unspecified; B37.82 Candidal enteritis; R76.9 Abnormal immunological finding in serum, unspecified; B89 Unspecified parasitic disease; M85.80 Other specified disorders of bone density and structure, unspecified site
CPT/HCPCS: 36415; 80053; 84403; 85027; 82670; 82679; 84144; 84436; 84439; 84443; 84480; 84481; 84482

== ENCOUNTER → 2021-12-08 01:05 | Outpatient (CLI) | payer BC, SELFPAY ==
--- NOTE | 2021-12-08 08:20 | DI.MRI_ITS ---
Exam(s) MR UPPER JOINT RT WO EXAM: MR UPPER JOINT RT WO CLINICAL HISTORY: R SHOULDER PAIN,adhesive capsulitis,rt rtc tendonitis,bursitis,m75.51,m75.8. TECHNIQUE: Multiplanar multisequence MRI was performed. COMPARISON: Shoulder films 12 November 2021 FINDINGS: BONES: There is no fracture or contusion pattern. JOINTS:The acromioclavicular joint mild degenerative changes. The glenohumeral joint is normal. TENDONS: Supraspinatus: Mild amount of high signal distally which could represent tendinitis versus partial te ar. No evidence of a full-thickness tear. Infraspinatus: Unremarkable. Subscapularis: Unremarkable. Teres Minor: Unremarkable. Biceps and Bivins: Unremarkable. MUSCLES: Unremarkable. GLENOID LABRUM: Unremarkable on this noncontrast examination. SOFT TISSUES: Unremarkable. OTHER: Subacromial and subdeltoid bursae shows a minimal amount of fluid. . IMPRESSION: Supraspinatus tendonitis versus small partial tear. Small amount of fluid in the subacromial subdelt oid bursa could represent bursitis. DATA REPOSITORY:
== END ==
PROVIDERS: PCP Internal Medicine; Visit Provider Student in an Organized Health Care Education/Training Program
DX: M25.511 Pain in right shoulder (principal); M75.01 Adhesive capsulitis of right shoulder; M75.51 Bursitis of right shoulder; M75.81 Other shoulder lesions, right shoulder
CPT/HCPCS: 73221

== ENCOUNTER 2022-03-12 04:11 | Outpatient (CLI) | payer BC, SELFPAY ==
[2022-03-12 09:27] LABS: Iron 159 ug/dL (50-170)
[2022-03-12 09:42] LABS: Ferritin 114 ng/mL (8-252); TSH 0.44 uIU/mL (0.36-3.74)
[2022-03-12 11:27] LABS: FREE T4 1.17 ng/dL (0.76-1.46)
[2022-03-12 18:36] LABS: T3,Free 3.4 pg/mL (2.8-5.3)
[2022-03-12 19:11] LABS: Estradiol 23 pg/mL (See Note); Progesterone 10.7 ng/mL (See Table)
[2022-03-12 19:21] LABS: Thyroglobulin Antibody 189 U/mL (<=60); Thyroperoxidase Antibody 227 U/mL (<=60)
[2022-03-16 17:59] LABS: Estradiol, Mass Spectrometry 20 pg/mL; Estrone 25 pg/mL
== END 2022-03-12 04:12 | disposition home or self-care (01) ==
LOC: LBO 04:11
PROVIDERS: PCP Internal Medicine; Visit Provider Physician Assistant
DX: E06.3 Autoimmune thyroiditis (principal); E03.9 Hypothyroidism, unspecified; D50.9 Iron deficiency anemia, unspecified; Z79.890 Hormone replacement therapy
CPT/HCPCS: 36415; 82670; 82679; 82728; 83540; 84144; 84439; 84443; 84481; 86376; 86800

== ENCOUNTER 2022-06-23 03:01 | Outpatient (CLI) | payer BC, SELFPAY ==
[2022-06-23 07:53] LABS: FREE T4 1.12 ng/dL (0.76-1.46)
[2022-06-23 17:27] LABS: T3,Free 4.2 pg/mL (2.8-5.3)
== END 2022-06-23 03:02 | disposition home or self-care (01) ==
PROVIDERS: PCP Internal Medicine
DX: E03.9 Hypothyroidism, unspecified (principal)
CPT/HCPCS: 36415; 84439; 84443; 84481

== ENCOUNTER 2022-08-25 02:07 | Outpatient (CLI) | payer BC, SELFPAY ==
[2022-08-25 14:58] LABS: Iron 180 ug/dL (50-170); Total Iron Binding Capacity 263 ug/dL (250-450); Transferrin Sat 68 % (15-50)
[2022-08-25 15:12] LABS: FREE T4 0.86 ng/dL (0.76-1.46); TSH 2.09 uIU/mL (0.36-3.74)
[2022-08-25 18:11] LABS: T3,Free 3.1 pg/mL (2.8-5.3)
[2022-08-25 18:42] LABS: Estradiol 44 pg/mL (See Note); Progesterone 11.2 ng/mL (See Table)
[2022-08-25 19:05] LABS: Ferritin 88 ng/mL (8-252)
[2022-08-25 19:14] LABS: Thyroglobulin Antibody 147 U/mL (<=60); Thyroperoxidase Antibody 166 U/mL (<=60)
[2022-08-26 09:39] LABS: DHEA Sulfate 150 ug/dL (56-283)
[2022-08-30 10:28] LABS: Testosterone, Free 0.41 ng/dL (<0.13-0.92); Testosterone, Total 23 ng/dL (8-60)
== END 2022-08-25 02:08 | disposition home or self-care (01) ==
LOC: LOS 02:07
PROVIDERS: PCP Internal Medicine; Visit Provider Naturopath
DX: G47.00 Insomnia, unspecified (principal); N95.1 Menopausal and female climacteric states; Z79.890 Hormone replacement therapy
CPT/HCPCS: 36415; 82627; 84402; 84403; 82670; 82728; 83540; 83550; 84144; 84439; 84443; 84481; 86376; 86800

== ENCOUNTER 2022-10-06 03:58 | Outpatient (CLI) | payer BC, SELFPAY ==
[2022-10-06 08:19] LABS: Iron 117 ug/dL (50-170); Total Iron Binding Capacity 251 ug/dL (250-450); Transferrin Sat 47 % (15-50)
[2022-10-06 08:32] LABS: Ferritin 77 ng/mL (8-252); TSH 1.86 uIU/mL (0.36-3.74)
[2022-10-07 23:36] LABS: Selenium, Serum 152 mcg/L (110-165)
[2022-10-08 11:07] LABS: Zinc, S 86 mcg/dL (60-106)
== END 2022-10-06 03:59 | disposition home or self-care (01) ==
PROVIDERS: PCP Internal Medicine; Visit Provider Naturopath
DX: E06.3 Autoimmune thyroiditis (principal); E03.9 Hypothyroidism, unspecified; R79.0 Abnormal level of blood mineral
CPT/HCPCS: 36415; 84630; 82728; 83540; 83550; 84255; 84443

== ENCOUNTER 2022-11-05 14:48 | Outpatient (REF) | payer BC, SELFPAY ==
[2022-11-05 15:32] LABS: Source Nasal/Nares
[2022-11-05 17:27] LABS: COVID-19 PCR Negative (Negative)
== END 2022-11-05 14:49 | disposition home or self-care (01) ==
LOC: LBN 14:48
PROVIDERS: PCP Internal Medicine; Visit Provider Physician Assistant Medical
DX: J02.9 Acute pharyngitis, unspecified (principal); Z20.822 Contact with and (suspected) exposure to COVID-19
CPT/HCPCS: 87635; 87081

== ENCOUNTER 2023-03-11 03:22 | Outpatient (CLI) | payer BC, SELFPAY ==
[2023-03-11 10:58] LABS: HGB 14.3 g/dL (11.2-15.7); MCH 31.8 pg (27.0-33.0); MCV 94 fL (80-95); MPV 10.7 fL (8.0-11.0); Platelet Count 225 10^3/uL (130-400); RBC 4.49 10^6/uL (3.93-5.22); RDW 11.8 % (11.7-14.6); RDW-SD 40.2 fL
[2023-03-11 11:27] LABS: Iron 84 ug/dL (50-170); Total Iron Binding Capacity 265 ug/dL (250-450); Transferrin Sat 32 % (15-50)
[2023-03-11 11:36] LABS: FREE T4 0.89 ng/dL (0.76-1.46); Ferritin 89 ng/mL (8-252); TSH 1.66 uIU/mL (0.36-3.74)
[2023-03-11 11:44] LABS: Vitamin D 25 Total 74.1 ng/mL (30-100)
[2023-03-11 19:13] LABS: T3,Free 4.2 pg/mL (2.8-5.3)
[2023-03-11 19:48] LABS: Estradiol 28 pg/mL (See Note); Progesterone 14.2 ng/mL (See Table)
[2023-03-11 20:39] LABS: Thyroglobulin Antibody 139 U/mL (<=60); Thyroperoxidase Antibody 126 U/mL (<=60)
== END 2023-03-11 03:23 | disposition home or self-care (01) ==
PROVIDERS: PCP Internal Medicine; Visit Provider Naturopath
DX: Z13.0 Encounter for screening for diseases of the blood and blood-forming organs and certain disorders involving the immune mechanism (principal); Z13.29 Encounter for screening for other suspected endocrine disorder; R53.83 Other fatigue; E55.9 Vitamin D deficiency, unspecified; E03.9 Hypothyroidism, unspecified; N95.1 Menopausal and female climacteric states
CPT/HCPCS: 36415; 82306; 85027; 86376; 82670; 82728; 83540; 83550; 84144; 84439; 84443; 84481

== ENCOUNTER 2023-11-04 03:25 | Outpatient (CLI) | payer BC, SELFPAY ==
[2023-11-04 08:59] LABS: TSH 1.08 uIU/Ml (0.36-3.74)
[2023-11-04 09:12] LABS: T4 6.5 ug/dL (4.7-13.3)
[2023-11-04 22:36] LABS: Estradiol 24 pg/mL (See Note); Progesterone 13.3 ng/mL (See Table)
[2023-11-09 10:02] LABS: Dehydroepiandrosterone (DHEA) 1.4 ng/mL (<6.0)
[2023-11-14 10:34] LABS: Testosterone, Free 0.18 ng/dL (<0.13-0.92); Testosterone, Total 14 ng/dL (8-60)
== END 2023-11-04 03:26 | disposition home or self-care (01) ==
PROVIDERS: PCP Internal Medicine; Visit Provider Nurse Practitioner Women's Health
DX: Z79.891 Long term (current) use of opiate analgesic (principal); E34.9 Endocrine disorder, unspecified
CPT/HCPCS: 36415; 84402; 84403; 82626; 82670; 84144; 84436; 84443

== ENCOUNTER 2024-03-10 01:02 | Outpatient (CLI) | payer BC, SELFPAY ==
[2024-03-10 17:07] LABS: ALT 32 U/L (14-59); AST 20 U/L (15-37); Albumin 3.8 g/dL (3.4-5.0); Alkaline Phosphatase 77 U/L (46-116); Anion Gap 4.2 mmol/L (3-11); BUN 16 mg/dL (7-18); Bilirubin, Total 0.18 mg/dL (0.2-1.0); CO2 32.8 mmol/L (21.0-32.0); CREATININE 0.9 mg/dL (0.55-1.02); Chloride 103 mmol/L (98-107); Estimated GFR 75.97 (mL/min/1.73m2); Glucose 118 mg/dL (74-106); Sodium 140 mmol/L (136-145); Total Protein 7.6 g/dL (6.4-8.2)
[2024-03-10 17:15] LABS: FREE T4 0.87 ng/dL (0.76-1.46); TSH 0.57 uIU/mL (0.36-3.74)
[2024-03-10 18:06] LABS: HDL Cholesterol 72 mg/dL (40-60)
[2024-03-10 18:45] LABS: Calculated LDL 114 mg/dL (<100); Cholesterol 204 mg/dL (<200); Triglyceride 94 mg/dL (<150)
[2024-03-10 22:29] LABS: T3,Free 3.9 pg/mL (2.8-5.3)
[2024-03-18 12:45] LABS: Testosterone, Free 1.06 ng/dL (<0.13-0.92); Testosterone, Total 53 ng/dL (8-60)
== END 2024-03-10 01:03 | disposition home or self-care (01) ==
PROVIDERS: PCP Internal Medicine; Visit Provider Naturopath
DX: Z79.890 Hormone replacement therapy (principal); Z13.29 Encounter for screening for other suspected endocrine disorder; E03.9 Hypothyroidism, unspecified
CPT/HCPCS: 36415; 80053; 80061; 84402; 84403; 84439; 84443; 84481

== ENCOUNTER 2024-05-24 13:31 | Outpatient (REF) | payer BC, SELFPAY | END 2024-05-24 13:32 | disposition home or self-care (01) | LOC: LBN 13:31 | PROVIDERS: PCP Internal Medicine; Visit Provider Physician Assistant Medical | DX: R10.2 Pelvic and perineal pain (principal) | CPT/HCPCS: 87480; 87510; 87660 ==

== ENCOUNTER 2024-05-25 10:44 | Outpatient (CLI) | payer BC, SELFPAY ==
[2024-05-25 13:04] LABS: Abs Immature Grans 0.01 10^3/uL (0.0-0.06); Absolute Basophil Count 0.04 10^3/uL (0.0-0.2); Absolute Eosinophil Count 0.14 10^3/uL (0.0-0.7); Absolute Lymphocyte Count 2.11 10^3/uL (1.2-3.4); Absolute Monocyte Count 0.54 10^3/uL (0.1-0.8); Absolute Neutrophil Count 2.97 10^3/uL (1.2-6.7); Basophils % 0.7 %; Eosinophils % 2.4 %; HCT 39.2 % (36.0-46.0); HGB 13.7 g/dL (11.2-15.7); Immature Grans % 0.2 %; Lymphocytes % 36.3 %; MCH 32.9 pg (27.0-33.0); MCHC 34.9 % (32.0-36.0); MCV 94 fL (80-95); Monocytes % 9.3 %; Neutrophils % 51.1 %; Platelet Count 213 10^3/uL (130-400); RBC 4.16 10^6/uL (3.93-5.22); RDW 11.9 % (11.7-14.6); WBC 5.81 10^3/uL (4.4-10.8)
[2024-05-25 13:52] LABS: ALT 32 U/L (14-59); AST 22 U/L (15-37); Albumin 3.7 g/dL (3.4-5.0); Alkaline Phosphatase 75 U/L (46-116); Anion Gap 3.9 mmol/L (3-11); BUN 13 mg/dL (7-18); Bilirubin, Total 0.3 mg/dL (0.2-1.0); CO2 30.1 mmol/L (21.0-32.0); CREATININE 0.9 mg/dL (0.55-1.02); Calcium 8.8 mg/dL (8.5-10.1); Chloride 106 mmol/L (98-107); Estimated GFR 75.97 (mL/min/1.73m2); Glucose 101 mg/dL (74-106); Potassium 4.3 mmol/L (3.5-5.1); Sodium 140 mmol/L (136-145); Total Protein 7.3 g/dL (6.4-8.2)
== END 2024-05-25 10:45 | disposition home or self-care (01) ==
LOC: LBO 10:47
PROVIDERS: PCP Internal Medicine; Visit Provider Physician Assistant Medical
DX: R10.2 Pelvic and perineal pain (principal)
CPT/HCPCS: 36415; 80053; 85025

== ENCOUNTER 2024-08-15 03:27 | Outpatient (CLI) | payer BC, SELFPAY ==
[2024-08-15 08:53] LABS: Iron 129 ug/dL (50-170); Total Iron Binding Capacity 241 ug/dL (250-450); Transferrin Sat 54 % (15-50)
[2024-08-15 09:04] LABS: FREE T4 0.77 ng/dL (0.76-1.46); TSH 0.82 uIU/mL (0.36-3.74)
[2024-08-15 09:29] LABS: Ferritin 79 ng/mL (8-252)
[2024-08-15 18:14] LABS: T3,Free 3.3 pg/mL (2.8-5.3)
[2024-08-17 12:24] LABS: Copper, Serum 97 mcg/dL (77-206)
[2024-08-17 12:25] LABS: Zinc, S 75 mcg/dL (60-106)
== END 2024-08-15 03:28 | disposition home or self-care (01) ==
LOC: LBO 03:28
PROVIDERS: PCP Internal Medicine; Visit Provider Naturopath
DX: Z13.29 Encounter for screening for other suspected endocrine disorder (principal); R53.83 Other fatigue; E03.9 Hypothyroidism, unspecified; Z13.0 Encounter for screening for diseases of the blood and blood-forming organs and certain disorders involving the immune mechanism
CPT/HCPCS: 36415; 82525; 84630; 82728; 83540; 83550; 84439; 84443; 84481

== ENCOUNTER 2024-08-29 04:01 | Outpatient (CLI) | payer BC, SELFPAY ==
[2024-08-29 09:12] LABS: HCT 39.1 % (36.0-46.0); HGB 13.3 g/dL (11.2-15.7); MCH 31.7 pg (27.0-33.0); MCHC 34.0 % (32.0-36.0); MCV 93 fL (80-95); MPV 9.8 fL (8.0-11.0); Platelet Count 211 10^3/uL (130-400); RBC 4.19 10^6/uL (3.93-5.22); RDW 11.3 % (11.7-14.6); RDW-SD 38.4 fL; WBC 5.02 10^3/uL (4.4-10.8)
[2024-08-29 09:53] LABS: Iron 177 ug/dL (50-170)
[2024-08-29 10:07] LABS: ALT 39 U/L (14-59); AST 19 U/L (15-37); Albumin 3.6 g/dL (3.4-5.0); Alkaline Phosphatase 67 U/L (46-116); Anion Gap 3.4 mmol/L (3-11); BUN 16 mg/dL (7-18); Bilirubin, Total 0.6 mg/dL (0.2-1.0); CO2 31.6 mmol/L (21.0-32.0); Calcium 8.5 mg/dL (8.5-10.1); Chloride 103 mmol/L (98-107); Estimated GFR 87.50 (mL/min/1.73m2); Ferritin 74 ng/mL (8-252); Glucose 76 mg/dL (74-106); Potassium 4.1 mmol/L (3.5-5.1); Sodium 138 mmol/L (136-145); Total Protein 7.3 g/dL (6.4-8.2)
== END 2024-08-29 04:02 | disposition home or self-care (01) ==
PROVIDERS: PCP Internal Medicine; Visit Provider Naturopath
DX: Z13.0 Encounter for screening for diseases of the blood and blood-forming organs and certain disorders involving the immune mechanism (principal); Z13.29 Encounter for screening for other suspected endocrine disorder
CPT/HCPCS: 36415; 80053; 85027; 82728; 83540

== ENCOUNTER 2024-11-24 04:02 | Outpatient (CLI) | payer BC, SELFPAY ==
[2024-11-24 10:49] LABS: TSH 3.99 uIU/mL (0.36-3.74)
[2024-11-24 17:27] LABS: T3,Free 3.2 pg/mL (2.8-5.3)
== END 2024-11-24 04:03 | disposition home or self-care (01) ==
PROVIDERS: PCP Internal Medicine; Visit Provider Naturopath
DX: Z13.29 Encounter for screening for other suspected endocrine disorder (principal); R53.83 Other fatigue; E03.9 Hypothyroidism, unspecified
CPT/HCPCS: 36415; 84439; 84443; 84481

== ENCOUNTER 2025-01-19 00:19 | Outpatient (CLI) | payer BC, SELFPAY ==
[2025-01-19 09:19] LABS: TSH 0.22 uIU/mL (0.55-4.78)
[2025-01-19 18:50] LABS: T3,Free 3.8 pg/mL (2.8-5.3)
== END 2025-01-19 00:20 | disposition home or self-care (01) ==
PROVIDERS: PCP Internal Medicine; Visit Provider Naturopath
DX: Z13.29 Encounter for screening for other suspected endocrine disorder (principal); R53.83 Other fatigue; E03.9 Hypothyroidism, unspecified
CPT/HCPCS: 36415; 84439; 84443; 84481